=== PATIENT | female | born 1965 | race Caucasian/White ===

== ENCOUNTER 2025-02-08 06:40 | Emergency (ER) | payer OTHER, SELFPAY ==
[2025-02-08] VITALS (13 sets, daily range): BP systolic 122–153; BP diastolic 58–74; PULSE 64–89; RESP 15–22; TEMP 36.8; O2SAT 94–97
--- NOTE | 2025-02-08 07:00 | EKG_ITS ---
[address] [address] Test Date: 2025-02-08 Pat Name: Richard Mccann Department: [facility] Room: Gender: Female Financial Reporting Advisor: JENNIE : 1965 Requested By: Order Number: [id number] Reading MD: Luiz Correa Measurements Intervals [place] Rate: 74 P: 75 ND: 140 QRS: 29 QRSD: 96 T: 27 QT: 464 QTc: 515 Interpretive Statements Normal sinus rhythm Low voltage QRS Nonspecific T wave abnormality Prolonged QT Electronically Signed On 02-11-2025 13:05:29 PDT by Luiz Correa
--- NOTE | 2025-02-08 07:00 | DI.RAD.S_ITS ---
PROCEDURE: XR CHEST 1V INDICATIONS: palpitations TECHNIQUE: One view of the chest was acquired. COMPARISON: None. FINDINGS: Surgical changes and devices: None. Lungs and pleura: Lungs are clear. No pleural effusions or pneumothorax. Mediastinum: Mediastinal contours appear normal. Heart size is normal. Bones and chest wall: No suspicious bony lesions. Overlying soft tissues appear unremarkable. IMPRESSION: No acute cardiopulmonary abnormality is seen. Dictated by: Hemanth Devine M.D. on 02/08/2025 at 7:20 Approved by: Hemanth Devine M.D. on 02/08/2025 at 7:20
--- NOTE | 2025-02-08 07:02 | DI.CT.S_ITS ---
PROCEDURE: CT HEAD/BRAIN WO CON INDICATIONS: confusion TECHNIQUE: Noncontrast 4.5 mm thick angled axial sections acquired from the foramen magnum to the vertex, with coronal and sagittal reformats. For radiation dose reduction, the following was used: automated exposure control, adjustment of mA and/or kV according to patient size. COMPARISON: None. FINDINGS: Image quality: Diagnostic. CSF spaces: Basal cisterns are patent. No extra-axial fluid collections. Ventricles are normal in size and shape. Brain: No midline shift. No intracranial mass effect or hemorrhage. Reyes- white matter interface is normal. Skull and face: Calvarium and visualized facial bones are intact, without suspicious lesions. Sinuses: Visualized sinuses and mastoids are clear. IMPRESSION: No acute intracranial pathology. Dictated by: Hemanth Devine M.D. on 02/08/2025 at 7:12 Approved by: Hemanth Devine M.D. on 02/08/2025 at 7:20
[2025-02-08 08:34] LABS: Add Manual Diff / Slide Review NO; Hematocrit 39.7 % (36-46); Hemoglobin 13.3 g/dL (12.0-16.0); Lymphocytes Absolute Auto 1500 /uL (1100-4500); Mean Corpuscular HGB Conc 33.5 % (30-36); Mean Corpuscular Hemoglobin 28.6 PG (26-34); Mean Corpuscular Volume 85.4 fL (80-100); Platelet Count 280 X10^3/uL (150-400)
[2025-02-08 08:43] LABS: INR 1.0 (0.9-1.3); Prothrombin Time 11.8 SECONDS (9.4-12.5)
[2025-02-08 08:45] LABS: PTT Partial Thromboplastin Tim 37 SECONDS (25.1-36.5)
[2025-02-08 08:48] LABS: Alanine Aminotransferase 39 IU/L (<35); Albumin 4.1 g/dL (3.5-5.0); Albumin Globulin Ratio 1.3 (1.0-2.8); Alkaline Phosphatase 92 U/L (38-126); Blood Urea Nitrogen 23 mg/dL (7-17); Calcium 9.5 mg/dL (8.4-10.2); Carbon Dioxide 29 mmol/L (22-32); Chloride 107 mmol/L (98-107); Creatine Kinase 53 U/L (30-135); Estimated Glomerular Filt Rate > 60 mL/min (>60); Globulin 3.1 g/dL (1.7-4.1); Glucose 124 mg/dL (70-99); HEMOLYSIS < 15 (0-50); Lipase 64 U/L (23-300); Potassium 4.0 mmol/L (3.4-5.1); Sodium 142 mmol/L (137-145); Total Protein 7.2 g/dL (6.3-8.2)
[2025-02-08 08:49] LABS: Acetaminophen < 10 ug/mL (10-30); Ethanol (ETOH) < 10 mg/dL (<10); Salicylate < 1.0 mg/dL (<20)
[2025-02-08 08:50] LABS: Magnesium 2.0 mg/dL (1.6-2.3)
[2025-02-08 08:52] LABS: Hemoglobin A1C% w Est Avg Glu 5.3 % (4.0-6.0)
[2025-02-08 08:58] LABS: NT-proBNP (BNP-Adult 18+) < 20 pg/mL (<125)
--- NOTE | 2025-02-08 09:00 | PC.NURSE ---
Pt able to ambulate from electric wheelchair to toilet independently for urine collection.
[2025-02-08 09:01] LABS: Troponin I < 0.012 ng/mL (0.01-0.034)
[2025-02-08 09:19] LABS: Thyroid Stimulating Hormone 4.93 uIU/mL (0.47-4.68)
[2025-02-08] MEDS: BACITRACIN OINT 0.9 GM PCKT 1 APPLIC TOP (09:22)
--- NOTE | 2025-02-08 09:22 | PC.NURSE ---
Wound care with hibiclens to right hand, 5th digit completed per patient request. Bactricin placed after wound cleansed. Pt with noted swelling and redness around nailbed of 5th digit. No drainage noted.
[2025-02-08 09:30] LABS: UR Morphine/Opiate cutoff 300 Negative (Negative); Ur Creatinine Normal (Normal); Ur Specific Gravity Normal (Normal); Urine MDMA Negative (Negative); Urine Methamphetamines Negative (Negative); Urine THC Negative (Negative); Urine Tricyclic Antidepressant Negative (Negative); Urine pH Normal (Normal)
[2025-02-08 11:09] LABS: Troponin I < 0.012 ng/mL (0.01-0.034)
--- NOTE | 2025-02-08 11:55 | ED_ITS ---
HPI - Arrhythmia/Palpitations General Chief Complaint: Arrhythmia/Palpitations Stated Complaint: Heart Palpitations Time Seen by Provider: 02/08/25 07:00 Source: patient Mode of arrival: Wheelchair History of Present Illness HPI narrative: Pleasant 51-year-old woman with history of lipedema and numerous other chronic medical conditions comes to the ER because of feeling palpitations and generally unwell. She states that when she was driving her RV she began to feel very hot and had to stop and plant puller because she did not feel comfortable driving. She has not been having any palpitations today as this episode occurred yesterday. She denies any chest pain, shortness of breath, diaphoresis, nausea, vomiting headache, changes in vision hearing speech swallowing or numbness tingling or weakness of any part of the body, Or any other complaints. Related Data Allergies Allergy/AdvReac Type Severity Reaction Status Date / Time gluten Allergy Verified 02/08/25 07:17 latex Allergy Verified 02/08/25 07:17 rubbing alcohol Allergy Uncoded 02/08/25 07:17 Exam Initial Vital Signs Initial Vital Signs: Vital Signs Pulse Rate 81 02/08/25 06:50 Blood Pressure 153/69 H 02/08/25 06:50 Pulse Oximetry 97 02/08/25 06:50 Const General: comfortable, No acute distress and anxious Nutritional Appearance: obese HENMT Head: normocephalic and atraumatic Eyes General: Yes appearance normal, both eyes and all related structures Neck Neck: normal visual inspection Resp Effort & Inspection: normal respiratory effort and no respiratory distress Cardio Rate: regular rate Rhythm: regular rhythm Heart Sounds: S1 normal and S2 normal GI Palpation: soft and No tender Auscultation: normal bowel sounds Course Course Course Narrative: No patient seen and examined by myself upon arrival in the ER. She was no longer having any palpitations and had numerous vague complaints. Nevertheless, she had a full cardiac workup and there was no concerning findings on telemetry, EKG, or labs. The patient felt that she was reassured that there was nothing active going on with her heart and felt comfortable with discharge home at that point. Therefore, I advised her to follow up with her PCP as soon as possible and otherwise return to the ER for any change or worsening in her condition especially chest pain, worsening palpitations or any strange sensations in her chest especially if accompanied by diaphoresis, nausea, vomiting, lightheadedness shortness of breath, or chest pain. The patient was in agreement with this plan. Orders Ordered: ED Orders 02/08/25 07:00 XR chest 1V Stat EKG-12 Lead Stat 02/08/25 07:02 CT head/brain wo con Stat 02/08/25 08:24 A1C [Hemoglobin A1C% w Est Avg Glu] Stat Acetaminophen Stat BNP [NT-proBNP (BNP-Adult 18+)] Stat Complete Blood Count AUTO DIFF Stat Comprehensive Metabolic Panel Stat D Dimer Stat ETOH [Ethanol (ETOH)] Stat Lipase Stat MAG [Magnesium] Stat PT [Prothrombin Time INR] Stat PTT Partial Thromboplastin Marc Stat Salicylate Stat TSH [Thyroid Stimulating Hormone] Stat Troponin & CK Cardiac Panel Stat 02/08/25 09:12 Urine Culture Stat Urine Drug Screen, Rapid Stat Urine Microscopic Stat 02/08/25 10:30 Trop I [Troponin I] Stat Discontinued Medications Bacitracin (Bacitracin Oint 0.9 Gm Pckt) 1 applic TOP NOW ONE Stop: 02/08/25 08:49 Last Admin: 02/08/25 09:22 Dose: 1 applic Documented By: Vital Signs Vital signs: Vital Signs - 8 hr 02/08/25 06:50 02/08/25 06:50 02/08/25 07:00 Temperature Pulse Rate 81 81 Respiratory Rate Blood Pressure 153/69 H Pulse Oximetry 97 95 Oxygen Delivery Method 02/08/25 07:00 02/08/25 07:02 02/08/25 07:43 Temperature 98.3 F Pulse Rate 81 89 Respiratory Rate 22 Blood Pressure 146/58 H 153/69 H Pulse Oximetry 96 96 Oxygen Delivery Method Room Air 02/08/25 08:00 02/08/25 08:30 02/08/25 09:00 Temperature Pulse Rate 81 79 76 Respiratory Rate Blood Pressure Pulse Oximetry 96 96 96 Oxygen Delivery Method 02/08/25 09:16 02/08/25 09:16 02/08/25 09:30 Temperature Pulse Rate 78 77 Respiratory Rate Blood Pressure 147/74 H Pulse Oximetry 97 96 Oxygen Delivery Method 02/08/25 10:00 02/08/25 10:00 02/08/25 10:30 Temperature Pulse Rate 77 73 Respiratory Rate Blood Pressure 130/58 L Pulse Oximetry 96 97 Oxygen Delivery Method 02/08/25 11:00 02/08/25 11:00 02/08/25 11:30 Temperature Pulse Rate 67 64 Respiratory Rate 15 15 Blood Pressure 122/60 Pulse Oximetry 97 94 Oxygen Delivery Method MDM - Arrhythmia/Palpitations Differential Diagnosis Differential diagnosis: Likely palpitations, anxiety, sinus tachycardia, artial fibrillation, artial flutter, ventricular premature beats, supraventricular tachycardia and ventricular tachycardia Lab Data 02/08/25 08:24 02/08/25 08:24 Labs: Lab Results 02/08/25 02/08/25 02/08/25 Range/Units 08:24 09:12 10:30 WBC 9.0 (4.5-11.0) X10^3/uL RBC 4.65 (4.0-5.2) X10^6/uL Hgb 13.3 (12.0-16.0) g/dL Hct 39.7 (36-46) % MCV 85.4 (80-100) fL MCH 28.6 (26-34) PG MCHC 33.5 (30-36) % RDW 15.8 H (11.6-14.8) % Plt Count 280 (150-400) X10^3/uL Neut % (Auto) 71.2 (50-75) % Lymph % (Auto) 16.3 L (25-40) % [place] % (Auto) 7.9 (3-14) % Eos % (Auto) 4.0 (2-4) % Baso % (Auto) 0.6 (0-2) % Neut # (Auto) 6400 (5607-2004) /uL Lymph # (Auto) 1500 (4274-6559) /uL [place] # (Auto) 700 (0-900) /uL Eos # (Auto) 400 (0-450) /uL Baso # (Auto) 0 (0-100) /uL PT 11.8 (9.4-12.5) SECONDS INR 1.0 (0.9-1.3) APTT 37 H (25.1-36.5) SECONDS D-Dimer 486 (<500) ng/ml Sodium 142 (137-145) mmol/L Potassium 4.0 (3.4-5.1) mmol/L Chloride 107 (98-107) mmol/L Carbon Dioxide 29 (22-32) mmol/L BUN 23 H (7-17) mg/dL Creatinine 0.87 (0.52-1.04) mg/dL Estimated GFR > 60 (>60) mL/min BUN/Creatinine Ratio 26.4 H (6-22) Glucose 124 H (70-99) mg/dL Hemoglobin A1c 5.3 (4.0-6.0) % Calcium 9.5 (8.4-10.2) mg/dL Magnesium 2.0 (1.6-2.3) mg/dL Total Bilirubin 0.4 (0.2-1.3) mg/dL AST 38 H (14-36) IU/L ALT 39 H (<35) IU/L Alkaline Phosphatase 92 (38-126) U/L Total Creatine Kinase 53 (30-135) U/L Troponin I < 0.012 < 0.012 (0.01-0.034) ng/mL NT-Pro-B Natriuret Pep < 20 (<125) pg/mL Total Protein 7.2 (6.3-8.2) g/dL Albumin 4.1 (3.5-5.0) g/dL Globulin 3.1 (1.7-4.1) g/dL Albumin/Globulin Ratio 1.3 (1.0-2.8) Lipase 64 (23-300) U/L TSH 4.93 H (0.47-4.68) uIU/mL Urine RBC 0-1/hpf (0-5/HPF) Urine WBC 0-1/hpf (0-5/HPF) Ur Squamous Epith Cells 1-5 /hpf (0-5/HPF) Urine Bacteria Many (>30) H (None) Vol Urine Centrifuged 10ml (spun) Salicylates < 1.0 (<20) mg/dL U Opiates 300ng/mL cut Negative (Negative) Ur Oxycodone Screen Negative (Negative) Urine Methadone Screen Negative (Negative) Acetaminophen < 10 (10-30) ug/mL Ur Barbiturates Screen Negative (Negative) U Tricyclic Antidepress Negative (Negative) Ur Phencyclidine Scrn Negative (Negative) Ur Amphetamines Screen Negative (Negative) U Methamphetamines Scrn Negative (Negative) Ur MDMA Scrn (Ecstasy) Negative (Negative) U Benzodiazepines Scrn Positive H (Negative) Urine Cocaine Screen Negative (Negative) U Marijuana (THC) Screen Negative (Negative) Urine pH Normal (Normal) Urine Specific [place] Normal (Normal) Ethyl Alcohol < 10 (<10) mg/dL Ur Creatinine Normal (Normal) Urine Dip Bedside Urine Glucose Negative Bedside Urine Bilirubin - Negative Bedside Urine Ketone - Negative Urine Specific [place] 1.020 Bedside Urine Occult Blood - Negative Bedside Urine pH 6.0 Bedside Urine Protein - Negative Bedside Urine Urobilinogen - Negative Bedside Urine Nitrite + Positive Bedside Urine Leukocytes - Negative Esterase ECG Data Interpretation: NSR HR 74 Discharge Plan Departure Patient Disposition: Home Clinical Impression: Palpitations Instructions: DI for General Condition Activity Restrictions/Additional Instructions: If there is any change or worsening in your condition such as chest pain, worsening palpitations or any sudden sweatiness, shortness of breath, nausea, vomiting or you feel unable to care for herself or if you have any other concerns then please return to the ER right away for further evaluation. Otherwise, follow up with your PCP as soon as possible. Referrals: PCP [Other] - As soon as possible Stand Alone Forms: Patient Portal/API
== END 2025-02-08 12:00 | disposition home or self-care (01) ==
PROVIDERS: Student in an Organized Health Care Education/Training Program; Emergency Provider Emergency Medicine
DX: R00.2 Palpitations (principal); R68.89 Other general symptoms and signs
CPT/HCPCS: 36415; 70450; 71045; 80053; 80305; 80320; 80329; 81003; 81015; 82550; 83036; 83690; 83735; 83880; 84443; 84484; 85025; 85379; 85610; 85730; 87077; 87086; 87186; 93005; 99284; G0480

== ENCOUNTER 2025-02-25 12:19 | Emergency (ER) | payer OTHER, SELFPAY ==
[2025-02-25] VITALS (24 sets, daily range): BP systolic 121–160; BP diastolic 58–76; PULSE 71–127; RESP 19; TEMP 36.8; O2SAT 91–99; BMI 53.5
--- NOTE | 2025-02-25 15:07 | ED.SKABFB ---
HPI - Skin/Abscess/Foreign Bdy <Luis Cano MD - Last Filed: 02/26/25 08:04> General Chief complaint: Skin/Abscess/Foreign Body Stated complaint: Bariatric Wound Care Time Seen by Provider: 02/25/25 13:59 Source: patient Mode of arrival: EMS Limitations: no limitations History of Present Illness HPI narrative: Patient states she has long history of lymphedema. Is from [place]. Moved here in November 2024. Has chronic lymphedema both legs and feet. This is not new. Also has right groin lesion and scalp swelling as well. No recent illness fever chills or congestion. Patient is trying to establish primary care here. Denies any chest pain or shortness of breath. Related Data Previous Rx's ?Medication ?Instructions ?Recorded amoxicillin 875 mg-potassium 1 tab PO BID #10 tabs 02/12/25 clavulanate 125 mg tablet Allergies Allergy/AdvReac Type Severity Reaction Status Date / Time gluten Allergy Verified 02/25/25 12:39 latex Allergy Verified 02/25/25 12:39 rubbing alcohol Allergy Uncoded 02/25/25 12:39 Review of Systems <Luis Cano MD - Last Filed: 02/26/25 08:04> Review of Systems Narrative: GENERAL: Negative chills, fatigue, malaise, fever, sweats. HEENT: Negative sinus pain, ear pain, sore throat RESPIRATORY: Negative dyspnea, cough CARDIOVASCULAR: Negative chest pain, palpitations, positive peripheral edema GASTROINTESTINAL: Negative vomiting, nausea, abdominal pain : Negative dysuria, frequency, hematuria MUSCULOSKELETAL: Negative muscle or bony pain SKIN: Negative rash, skin lesions NEUROLOGIC: Negative weakness, numbness ROS Unobtainable: All systems reviewed & are unremarkable except as noted in HPI and below Patient History <Luis Cano MD - Last Filed: 02/26/25 08:04> Social History household members: other Smoking Status: Never smoker Smoking Status: Never smoker Exam <Luis Cano MD - Last Filed: 02/26/25 08:04> Narrative Exam Narrative: GENERAL: in no distress, not toxic not dyspneic HEAD: Normocephalic. EYES: Pupils equal round the preauricular areas there are areas of dry skin from where her glasses against the face. ENT: Mucous membranes moist. NECK: Trachea midline. CARDIOVASCULAR: Regular rate and rhythm RESPIRATORY: Clear to auscultation. Breath sounds equal bilaterally. No wheezes, rales, or rhonchi. EXTREMITIES: No gross deformities. There is to feet are warm soft pink, strong pedal pulses brisk cap refills light touch intact to feet and toes. Negative Homans test negative Bhatia test. No palpable cords in the calves.. Small right inguinal no skin lesion that is nontender no fluctuance no erythema edema. No red streaking. NEURO: AOx4. Clear speech SKIN: Warm and dry PSYCH: Patient is anxious, is cooperative, has very rapid speech. Knees redirecting often. No SI no HI. No auditory visual hallucinations. Initial Vital Signs Initial Vital Signs: Vital Signs Pulse Rate 82 02/25/25 12:29 Pulse Oximetry 99 02/25/25 12:29 <Nura Bella, - Last Filed: 02/26/25 04:18> Initial Vital Signs Initial Vital Signs: Vital Signs Pulse Rate 82 02/25/25 12:29 Pulse Oximetry 99 02/25/25 12:29 Course <Luis Cano MD - Last Filed: 02/26/25 08:04> Orders Ordered: ED Orders 02/25/25 12:38 Consult to TEAM AUTOMOBILE ASSEMBLER - Associate Director Of Development Stat 02/25/25 12:39 Consult to TEAM AUTOMOBILE ASSEMBLER - Associate Director Of Development Stat 02/25/25 15:56 Consult to TEAM AUTOMOBILE ASSEMBLER - Associate Director Of Development Stat periph venous low extrem bi Stat 02/25/25 16:04 CBC Auto Diff [Complete Blood Count AUTO DIFF] Stat CMP [Comprehensive Metabolic Panel] Stat D Dimer Stat Vital Signs Vital signs: Vital Signs - 8 hr 02/26/25 07:12 Pulse Rate 79 Respiratory Rate 16 Blood Pressure 145/81 H Pulse Oximetry 100 Oxygen Delivery Method Room Air <Nura Bella, DO - Last Filed: 02/26/25 04:18> Orders Ordered: ED Orders 02/25/25 12:38 Consult to TEAM AUTOMOBILE ASSEMBLER - Associate Director Of Development Stat 02/25/25 12:39 Consult to TEAM AUTOMOBILE ASSEMBLER - Associate Director Of Development Stat 02/25/25 15:56 Consult to TEAM AUTOMOBILE ASSEMBLER - Associate Director Of Development Stat periph venous low extrem bi Stat 02/25/25 16:04 CBC Auto Diff [Complete Blood Count AUTO DIFF] Stat CMP [Comprehensive Metabolic Panel] Stat D Dimer Stat Vital Signs Vital signs: Vital Signs - 8 hr 02/26/25 07:12 Pulse Rate 79 Respiratory Rate 16 Blood Pressure 145/81 H Pulse Oximetry 100 Oxygen Delivery Method Room Air MDM - Skin/Abscess/Foreign Bdy <Luis Cano MD - Last Filed: 02/26/25 08:04> Lab Data 02/25/25 16:04 02/25/25 16:04 Labs: Lab Results 02/25/25 Range/Units 16:04 WBC 8.0 (4.5-11.0) X10^3/uL RBC 4.92 (4.0-5.2) X10^6/uL Hgb 14.2 (12.0-16.0) g/dL Hct 42.2 (36-46) % MCV 85.7 (80-100) fL MCH 28.9 (26-34) PG MCHC 33.8 (30-36) % RDW 15.0 H (11.6-14.8) % Plt Count 277 (150-400) X10^3/uL Neut % (Auto) 65.1 (50-75) % Lymph % (Auto) 23.7 L (25-40) % [place] % (Auto) 7.7 (3-14) % Eos % (Auto) 2.4 (2-4) % Baso % (Auto) 1.1 (0-2) % Neut # (Auto) 5200 (8732-5550) /uL Lymph # (Auto) 1900 (2660-0815) /uL [place] # (Auto) 600 (0-900) /uL Eos # (Auto) 200 (0-450) /uL Baso # (Auto) 100 (0-100) /uL D-Dimer 520 H (<500) ng/ml Sodium 140 (137-145) mmol/L Potassium 3.7 (3.4-5.1) mmol/L Chloride 104 (98-107) mmol/L Carbon Dioxide 28 (22-32) mmol/L BUN 10 (7-17) mg/dL Creatinine 0.72 (0.52-1.04) mg/dL Estimated GFR > 60 (>60) mL/min BUN/Creatinine Ratio 13.9 (6-22) Glucose 100 H (70-99) mg/dL Calcium 9.6 (8.4-10.2) mg/dL Total Bilirubin 0.5 (0.2-1.3) mg/dL AST 32 (14-36) IU/L ALT 29 (<35) IU/L Alkaline Phosphatase 73 (38-126) U/L Total Protein 7.5 (6.3-8.2) g/dL Albumin 4.2 (3.5-5.0) g/dL Globulin 3.3 (1.7-4.1) g/dL Albumin/Globulin Ratio 1.3 (1.0-2.8) MDM Narrative Medical decision making narrative: Patient states she has long history of lymphedema. Is from [place]. Moved here in November 2024. Has chronic lymphedema both legs and feet. This is not new. Also has right groin lesion and scalp swelling as well. No recent illness fever chills or congestion. Patient is trying to establish primary care here. Denies any chest pain or shortness of breath. After history and exam, CBC CMP ultrasound legs social work consult MDM Differential considered: Includes but not limited to chronic lymphedema, peripheral edema dependent edema Medical records reviewed: February 08, 2025 ER visit here. Lab Test results independently reviewed as above. Pertinent findings: WBC 8.0 hemoglobin 14.2 D-dimer 520 sodium 140 potassium 3.7 BUN 10 creatinine 0.72 GFR greater than 60 Imaging studies independently reviewed: Consultations: Re-evaluations: Discussion: 6:[address] Cano: Sign out to Dr. Cali, social work is seeing patient. Vessel Operator has been called as well. Patient has a lot of social concerns. Medically patient is reassuring. Ultrasound of the legs are pending. Laboratory studies are reassuring. Diagnosis: Chronic lymphedema All lab work vital signs nurse triage note medication list previous ER visits and all imaging studies reviewed. Patient is requesting to go back to her RV at this time. Ultrasound is limited study without finding of DVT. WBC is 8.0 hemoglobin 14.2 platelet 276. D-dimer 520 sodium 140 potassium 3.7 chloride 104 CO2 28 BUN 10 creatinine 0.72 glucose 100. Patient is medically stable cleared. February 26, 2025 7:00 a.m.. Patient has been monitored through the night, Dr. Bella attending overnight. Patient discharge without any incident this morning <Nura Bella, DO - Last Filed: 02/26/25 04:18> Lab Data Labs: Lab Results 02/25/25 Range/Units 16:04 WBC 8.0 (4.5-11.0) X10^3/uL RBC 4.92 (4.0-5.2) X10^6/uL Hgb 14.2 (12.0-16.0) g/dL Hct 42.2 (36-46) % MCV 85.7 (80-100) fL MCH 28.9 (26-34) PG MCHC 33.8 (30-36) % RDW 15.0 H (11.6-14.8) % Plt Count 277 (150-400) X10^3/uL Neut % (Auto) 65.1 (50-75) % Lymph % (Auto) 23.7 L (25-40) % [place] % (Auto) 7.7 (3-14) % Eos % (Auto) 2.4 (2-4) % Baso % (Auto) 1.1 (0-2) % Neut # (Auto) 5200 (0732-7446) /uL Lymph # (Auto) 1900 (6180-9179) /uL [place] # (Auto) 600 (0-900) /uL Eos # (Auto) 200 (0-450) /uL Baso # (Auto) 100 (0-100) /uL D-Dimer 520 H (<500) ng/ml Sodium 140 (137-145) mmol/L Potassium 3.7 (3.4-5.1) mmol/L Chloride 104 (98-107) mmol/L Carbon Dioxide 28 (22-32) mmol/L BUN 10 (7-17) mg/dL Creatinine 0.72 (0.52-1.04) mg/dL Estimated GFR > 60 (>60) mL/min BUN/Creatinine Ratio 13.9 (6-22) Glucose 100 H (70-99) mg/dL Calcium 9.6 (8.4-10.2) mg/dL Total Bilirubin 0.5 (0.2-1.3) mg/dL AST 32 (14-36) IU/L ALT 29 (<35) IU/L Alkaline Phosphatase 73 (38-126) U/L Total Protein 7.5 (6.3-8.2) g/dL Albumin 4.2 (3.5-5.0) g/dL Globulin 3.3 (1.7-4.1) g/dL Albumin/Globulin Ratio 1.3 (1.0-2.8) MDM Narrative Medical decision making narrative: Patient states she has long history of lymphedema. Is from [place]. Moved here in November 2024. Has chronic lymphedema both legs and feet. This is not new. Also has right groin lesion and scalp swelling as well. No recent illness fever chills or congestion. Patient is trying to establish primary care here. Denies any chest pain or shortness of breath. After history and exam, CBC CMP ultrasound legs social work consult MDM Differential considered: Includes but not limited to chronic lymphedema, peripheral edema dependent edema Medical records reviewed: February 08, 2025 ER visit here. Lab Test results independently reviewed as above. Pertinent findings: WBC 8.0 hemoglobin 14.2 D-dimer 520 sodium 140 potassium 3.7 BUN 10 creatinine 0.72 GFR greater than 60 Imaging studies independently reviewed: Consultations: Re-evaluations: Discussion: 6:[address] Cano: Sign out to Dr. Cali, social work is seeing patient. Vessel Operator has been called as well. Patient has a lot of social concerns. Medically patient is reassuring. Ultrasound of the legs are pending. Laboratory studies are reassuring. Diagnosis: Chronic lymphedema All lab work vital signs nurse triage note medication list previous ER visits and all imaging studies reviewed. Patient is requesting to go back to her RV at this time. Ultrasound is limited study without finding of DVT. WBC is 8.0 hemoglobin 14.2 platelet 276. D-dimer 520 sodium 140 potassium 3.7 chloride 104 CO2 28 BUN 10 creatinine 0.72 glucose 100. Patient is medically stable cleared. Discharge Plan Departure Patient Disposition: Home Clinical Impression: Chronic acquired lymphedema Instructions: DI for Lymphedema Activity Restrictions/Additional Instructions: Return with new or worsening symptoms. Please follow up to get established with a local PCP for continuity of care. Prescriptions: No Action amoxicillin-pot clavulanate 875-125 mg tablet 1 tab PO BID Qty: 10 0RF Stand Alone Forms: Patient Portal/API
--- NOTE | 2025-02-25 15:56 | DI.US.S_ITS ---
PROCEDURE: US PERIPH VENOUS LOW EXTREM BI INDICATIONS: SWELLING TECHNIQUE: Real-time imaging, as well as color and pulse Doppler interrogation, were performed of the deep veins of both legs from the inguinal ligament to the popliteal fossa, with documentation of the visualized calf veins. COMPARISON: None. FINDINGS: Right: The common femoral, femoral, popliteal, and the visualized calf veins are normally compressible, and free of intraluminal thrombus. Color and pulse Doppler demonstrate normal phasic intravascular flow. There is normal augmentation response to distal compression maneuver. Left: The common femoral, femoral, popliteal, and the visualized calf veins are normally compressible, and free of intraluminal thrombus. Color and pulse Doppler demonstrate normal phasic intravascular flow. There is normal augmentation response to distal compression maneuver. This evaluation is limited, secondary to the patient's inability to fully cooperate with the examination. The patient was unable to tolerate standard probe pressures. IMPRESSION: Limited study, yet without findings of deep venous thrombosis. Is Dictated by: Efrain Ascencio M.D. on 02/25/2025 at 18:20 Approved by: Efrain Ascencio M.D. on 02/25/2025 at 18:20
[2025-02-25 16:10] LABS: Add Manual Diff / Slide Review NO; Hematocrit 42.2 % (36-46); Hemoglobin 14.2 g/dL (12.0-16.0); Lymphocytes Absolute Auto 1900 /uL (1100-4500); Mean Corpuscular HGB Conc 33.8 % (30-36); Mean Corpuscular Hemoglobin 28.9 PG (26-34); Mean Corpuscular Volume 85.7 fL (80-100); Platelet Count 277 X10^3/uL (150-400)
[2025-02-25 16:23] LABS: Alanine Aminotransferase 29 IU/L (<35); Albumin 4.2 g/dL (3.5-5.0); Albumin Globulin Ratio 1.3 (1.0-2.8); Alkaline Phosphatase 73 U/L (38-126); Blood Urea Nitrogen 10 mg/dL (7-17); Calcium 9.6 mg/dL (8.4-10.2); Carbon Dioxide 28 mmol/L (22-32); Chloride 104 mmol/L (98-107); Estimated Glomerular Filt Rate > 60 mL/min (>60); Globulin 3.3 g/dL (1.7-4.1); Glucose 100 mg/dL (70-99); HEMOLYSIS < 15 (0-50); Potassium 3.7 mmol/L (3.4-5.1); Sodium 140 mmol/L (137-145); Total Protein 7.5 g/dL (6.3-8.2)
--- NOTE | 2025-02-25 16:39 | PC.NURSE ---
Pt was talking to FAMILY CONSUMER SCIENCE FCS TEACHER and started being verbally aggressive to FAMILY CONSUMER SCIENCE FCS TEACHER, FAMILY CONSUMER SCIENCE FCS TEACHER called for help and security and ED RN entered room. Attempting to deescalate pt. Pt became upset after security gave pt information on service dogs in hospital.
--- NOTE | 2025-02-25 16:47 | PC.NURSE ---
Pt ambulating in room, pt upset and attempting to walk dog. SEWER BUILDER at bedside conversing with pt
--- NOTE | 2025-02-25 16:47 | PC.NURSE ---
pt was witnessed to get out of bed by herself and ambulate around the room with her dog.
--- NOTE | 2025-02-25 17:29 | PC.NURSE ---
Addendum entered by Odalys Ogden R.N. 02/25/25 17:38: Pt states that she is refusing to participate in any further care unless a waste management engineer is present. Original Note: [facility] [employer] reports to RN that pt refusing to get off toilet until someone wipes her after urinating. Pt ambulated to bathroom with steady gait and independently. :Primary RN & float RN spoke with pt and encouraged pt to perform her own ADLs. Pt adamantly refuses and states that she is unable to wipe herself due to rare tumors and rare diseases that have no cure and yelling at staff.
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
--- NOTE | 2025-02-25 18:45 | PC.NURSE ---
This RN and EDT Tamanna knocked on door and announced staff intention to enter room, pt gave verbal consent to enter. Pt found sitting on toilet. This RN and EDT discussed with pt the safest and most appropriate way to get pt off of toilet. Pt stated that pt's dog was the only way that pt could move as pt placed weight on dog as a brace and weight bearing dog. Pt's dog not in room as a pt approved acquaintance took dog from ED, with pt's permission, outside for bathroom and general care. Pt states that if staff could move bed closer to toilet, pt states that they think that they could use bed to stand. 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 I've had 4 concussions with walkers. This RN verified with pt that pt is ok using a less safe alternative, pt verbalized understanding and gave verbal approval to use bed to help pt to stand. Pt was placed in hospital gown and pt's pants were removed, this RN verbalized each each step this RN was doing in order to help remove pt's pants. Pt was able to stand under pt's own power. This RN gave step by step verbal description of each step this RN was doing to provide pericare to pt. Pt gave verbal consent for this RN to clean pt, EDT as organizational consultant. Pt was then able to stand and ambulate into bed by self and 2 staff in room for pt's safety. Pt sat on stretcher and repositioned self in bed. Staff assisted pt into pt's position of comfort with bed controls. Vitals obtained after pericare was provided, see vitals charted. Pt on RA, NAD, breathing even/equal/unlabored at this time. Call light within reach, US tech and wet process technician (as organizational consultant) at bedside for US. No other needs at this time
--- NOTE | 2025-02-25 19:02 | PC.NURSE ---
Addendum entered by Josey La R.N. 02/25/25 19:07: tolerated Original Note: Pt had an ultrasound at bedside. It was performed by Armen from Ultrasound. Daisy from CT was at bedside for the entire exam and reports Armen completed the ultrasound per protocol. no issues or problems. pt tolearted well.
--- NOTE | 2025-02-25 19:23 | CM.DANOTE ---
ED COAL GRADER Assessment Note: Pt is a 59yo nonbinary identifying person, new resident of [place], is seen in the ED for bariatric wound care. Hx of lipedema. Pt lives in an RV with their service dog and cat. Pt's Primary Care Provider is Dr. Alicia Ragsdale in [place], [place] (needs to establish PCP in [place]) and insurance is currently [facility], cannot move to [place] Medicaid until established with a PCP. Reviewed chart and discussed with multidisciplinary team pt's medical status and initial discharge needs. ED COAL GRADER met w/patient at bedside; introduced self and role. Patient was found in bed, alert and oriented, cooperative with assessment. Pt is found to be circumstantial and compulsive with speech, labile and full range in affect. Pt confirmed living situation and expressed at length her frustration with establishing care in [place] as well as recent mechanical issues with her RV (not able to utilize hydraulic lift that gets pt in and out of RV). Pt expressed preference in assistance with wound care consult, referral to any community resources to obtain a spot for them to park their RV with electricity hook-ups. Pt states they have been working extensively at obtaining a surgery by a specific surgeon in [place]. Community Contacts: Pt states they have been attempting to coordinate assistance with [facility] ([facility]) and [facility]. They state they have been calling 2-1-1 daily to request assistance and have SNAP benefits for food when they were able to get in and out of their RV. Pt states they have a urinalysis technician who assists with the recent repairs on RV (They have graciously accepted pt's pets while pt is in ED). As a mandated superintendent car construction per RCW [phone] I have given confidential information about the patient to Adult Protective Services intake team for self-neglect. Intake # [id number]. ED COAL GRADER called Wound Care clinic at [facility]. They report they are aware of pt but due to pt's insurance, they will need to obtain authorization by their Director who will return to office on Sunday, 03/02. ED COAL GRADER called Wound Care Clinic at [facility]. They report they are able to schedule pt next week Sunday. Pt declines referral to other clinics, states she must only go to [facility] because they work directly with [facility], whom pt is hopeful to start care due to her needed compression DME. ED COAL GRADER called office of Dr. Sharyn Tran, pt's only preference for PCP, who state they are not able to accept pt at this time. Recommended pt to be seen by any provider at [facility] - [address] [place] [address]. ED COAL GRADER printed Provider list for pt. ED COAL GRADER assisted multiple times in room, attempting to de-escalate pt when pt became upset that she was reminded of service animal policy. Pt continued to speak compulsively and circumstantially while COAL GRADER was in room or when witnessing pt speaking to other ED staff while sitting outside of room. Plan: Medical work up to continue, will need PCP and wound care follow up. ED staff to coordinate discharge plans. JIAN Hogan Discharge Planning/Care Management CM Discharge Assessment Start: 02/25/25 13:32 Freq: Status: Active Protocol: Document 02/25/25 13:53 MW (Rec: 02/25/25 13:57 MW [id number]) Discharge Planning Assessment Assigned Discharge NICHOLE Quiles Panel Instrument Repairer Advance Directives? No History Provided By Patient,Medical Record Has Patient been No admitted in last 30 days? Prior Living RV Arrangements Comment RV currently in [facility] parking lot Household Members other Comment Lives with Service Animal Type of Drives own vehicle transporation used prior to admit Independent with ADL No 's Is patient alert and Yes oriented? Needs Assistance Bathing,Grooming,Meal Prep,Toileting,Managing With Medications,Home Chores / Shopping DME Already Rented / Wheelchair Owned Barriers to Yes Discharge Comment Unsafe living conditions - hydrolic lift to get in and out of RV are inoperable. Discharge Plan Home Community Services Wound Care Review Status In Process Please Provide Date 02/25/25 Initial DC Assessment Was Performed Next Review Type Continued Stay Review
--- NOTE | 2025-02-25 20:50 | PC.NURSE ---
Pt resting on stretcher, RA, NAD, breathing even/equal/unlabored at this time. Call light within reach
--- NOTE | 2025-02-25 22:29 | PC.NURSE ---
Pt laying on stretcher, requested to be placed on O2 @1LPM, NAD, A&Ox4, breathing even/equal/unlabored at this time. Call light within reach, pt able to use call light well
--- NOTE | 2025-02-26 02:36 | PC.NURSE ---
Patient recurrently states that she wants to leave due to her issues being Chronic and Emergency Room's are not able to manage her issues and concerns. Spoke extensively with patient regarding the need to focus on her current needs and concerns that we are able to help her with at this time. However, pt continues to bring up issues unrelated to her visit for being here. Patient explains that she needs to leave because her dog and cat are in her van at this time. She can not leave them unattended, without someone to care for them. Reviewed with pt at this time that we are managing her acute issues at this time and that the provider will be in to review her information when he is available.
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
[2025-02-26 07:12] VITALS: BP 145/81; PULSE 79; RESP 16; O2SAT 100
== END 2025-02-26 07:15 | disposition home or self-care (01) ==
PROVIDERS: Emergency Medicine; Emergency Provider Family Medicine
DX: I89.0 Lymphedema, not elsewhere classified (principal)
CPT/HCPCS: 80053; 85025; 85379; 93970; 99281; 99284